=== PATIENT | female | born 1990 | race Caucasian/White ===

== ENCOUNTER 2021-08-07 23:12 | Emergency (ER) | payer BC ==
[~2021-08-07] VITALS: Ht 160 cm; Wt 95.3 kg
[2021-08-08 00:05] VITALS: BP 119/74
== END 2021-08-08 02:43 | disposition left against medical advice (07) ==
LOC: ER 23:12
DX: S09.90XA Unspecified injury of head, initial encounter (principal); Z53.21 Procedure and treatment not carried out due to patient leaving prior to being seen by health care provider; W01.0XXA Fall on same level from slipping, tripping and stumbling without subsequent striking against object, initial encounter; Y93.89 Activity, other specified; Y92.89 Other specified places as the place of occurrence of the external cause; Y99.8 Other external cause status

== ENCOUNTER 2023-06-29 19:17 | Emergency (ER) | payer BC, OTHER ==
[~2023-06-29] VITALS: Ht 160 cm; Wt 108.7 kg
[2023-06-29 19:27] VITALS: BP 124/89; PULSE 64; RESP 18; TEMP 97.8; O2SAT 99
[2023-06-29] MEDS: FLUORESCEIN SOD OPTH TEST STRIP RIGHTEYE ONE (20:54)
[2023-06-29] MEDS ORDERED: CIPR0.3S19 OP (21:15)
== END 2023-06-29 21:54 | disposition home or self-care (01) ==
LOC: ER 19:17
DX: S05.8X1A Other injuries of right eye and orbit, initial encounter (principal); Z88.8 Allergy status to other drugs, medicaments and biological substances; X58.XXXA Exposure to other specified factors, initial encounter; Y93.89 Activity, other specified; Y92.89 Other specified places as the place of occurrence of the external cause; Y99.8 Other external cause status